=== PATIENT | female | born 1935 | race Caucasian/White ===

== ENCOUNTER 2017-04-01 12:18 | Inpatient (IN) | payer OTHER ==
[~2017-04-01] VITALS: Ht 165.1 cm; Wt 71.7 kg
--- NOTE | 2017-04-01 12:38 | NUR ---
PT HERE FOR HAVING A 3 SEC PERDIOD WHILE EATING LUNCH OF SYNCOPE. NO FALL PT WAS SITTING IN CHAIR. PT DOES NOT REMEMBER INCIDENT. PT ARRIVES ALERT AND ORIENTED WITH NO C/O OF ANY KIND AT THIS TIME. VSS UPON ARRIVAL. BS 122 PER EMS. PT CONNECTED TO GRAPHICS MANAGER AND EKG PERFORMED.
--- NOTE | 2017-04-01 12:39 | NUR ---
DR YANES AT BEDSIDE FOR EVAL
[2017-04-01 13:04] LABS: BASOPHIL % 0.9 % (0-2); PLATELET COUNT 202 x10^3mcL (130-400); RED CELL DISTRIBUTION WIDTH 13.3 % (11.5-14.5)
[2017-04-01 13:08] LABS: UA SPECIFIC GRAVITY >=1.030 (1.005-1.035); microscopic required? YES; urine erythrocyte NEGATIVE (NEGATIVE)
[2017-04-01 13:13] LABS: CALCIUM 9.7 mg/dL (8.5-10.1); CARBON DIOXIDE 31.9 mmol/L (21-32); CHLORIDE SERUM 105 mmol/L (98-107); CREATININE SERUM 0.9 mg/dL (0.6-1.0); GLUCOSE SERUM 131 mg/dL (74-106); POTASSIUM SERUM 4.4 mmol/L (3.5-5.1); SODIUM SERUM 143 mmol/L (136-145)
[2017-04-01 13:17] LABS: ALBUMIN 4.2 g/dL (3.4-5.0); ALKALINE PHOSPHATASE 114 U/L (46-116); ALT/SGPT 58 U/L (14-59); AST/SGOT 42 U/L (15-37); BILIRUBIN TOTAL 0.46 mg/dL (0.20-1.00); TOTAL PROTEIN, SERUM 7.7 g/dL (6.4-8.2)
[2017-04-01] MEDS ORDERED: SYNTHROID0.1 MG PO (13:35)
[2017-04-01] MEDS ORDERED: FENOFIBRATE145 M1 PO (13:35)
[2017-04-01] MEDS ORDERED: DILANTIN100 MG PO (13:35)
--- NOTE | 2017-04-01 13:38 | NUR ---
REPORT GIVEN TO LATIRCIA SHAH RN
[2017-04-01 14:14] VITALS: BP 122/71
--- NOTE | 2017-04-01 14:18 | NUR ---
RECEIVED PT FROM ED VIA ALIX. ORIENTED PT TO ROOM AND SURROUNDINGS. IV NOTED TO LAC PATENT AND INTACT .TELE 16 PLACED ON PT READING SBR. INSTRUCTED PT ON THE USE OF CALL LIGHT FOR ASSISTANCE. ENDORSED PT TO PRIMARY NURSE LATRICIA
--- NOTE | 2017-04-01 14:38 | NUR ---
PT RESTING IN BED, STUDENT AT BEDSIDE, NO RESPRIATORY DISTRESS NOTED, DENIES PAIN.
[2017-04-01 14:56] LABS: MAGNESIUM 2.3 mg/dL (1.8-2.4); PHOSPHOROUS 4.3 mg/dL (2.5-4.9)
[2017-04-01 15:07] LABS: FREE T4 1.02 ng/dL (0.76-1.46); FREE THYROXINE INDEX 2.9 ug/dL (1.4-4.5); T4(THYROXINE) 8.4 ug/dL (4.7-13.3)
[2017-04-01 15:10] LABS: T3 TOTAL 1.05 ng/mL
--- NOTE | 2017-04-01 15:38 | NUR ---
PT OFF UNIT FOR CT SCAN.
--- NOTE | 2017-04-01 15:55 | NUR ---
FLU VACCINE GIVEN.
[2017-04-01 15:57] LABS: AMPHETAMINE QUAL UR NONE DETECTED (NEG <=1000)
[2017-04-01 16:30] VITALS: BP 136/69
--- NOTE | 2017-04-01 17:14 | NUR ---
PT RESTING IN BED, NO RESPIRATORY DISTRESS NOTED, DENIES PAIN, TECH AT BEDSIDE.
--- NOTE | 2017-04-01 18:35 | NUR ---
PT AMBULATED TO BATHROOM INDEPENDENTLY, NO RESPIRATORY DISTRESS NOTED, DENIES PAIN.
--- NOTE | 2017-04-01 19:55 | NUR ---
RECEIVED PATIENT FROM AM RN-JOSE LUIS. PATIENT QUIETLY RESTING IN BED AT THIS TIME. NO S/SX OF DISTRESS NOTED. A/OX4 ABLE TO VERBALIZE NEEDS. TELE 16 NSR, DENIES ANY DIZZINESS OR HEADACHE. SEIZURE PRECAUTIONS IN PLACE. NO SEIZURE ACTIVITY NOTED AT THIS TIME. IVF INFUSING TO LAC AT 160ML/HR NS, NO INFILTRATION NOTED. CALL LIGHT WITHIN REACH.
[2017-04-01 20:29] VITALS: BP 140/71
[2017-04-02] VITALS (7 sets, daily range): BP systolic 118–152; BP diastolic 62–92
--- NOTE | 2017-04-02 01:54 | NUR ---
PATIENT QUIETLY RESTING IN BED. NO S/SX OF DISTRESS NOTED. EASILY AWAKEABLE, DENIES ANY DIZZINESS, OR SYNCOPE EPISODES. SEIZURE PRECAUTIONS REMAIN IN PLACE, WITH NO SEIZURE ACTIVITY NOTED AT THIS TIME. CALL LIGHT WITHIN REACH.
--- NOTE | 2017-04-02 05:41 | NUR ---
PATIENT QUIETLTY RESTING IN BED. EASILY AWAKEABLE. NO SEIZURE ACTIVITY NOTED THROUGHOUT THE NIGHT. NO EPISODES OF DIZZINESS OR SYNCOPE. PATIENT CONTINUES TO DENY ANY PAIN. TELE 16 SR 60. CALL LIGHT WITHIN REACH AND WILL ENDORSE CONTINUITY OF CARE TO AM RN.
[2017-04-02 06:20] LABS: BASOPHIL % 0.4 % (0-2); PLATELET COUNT 189 x10^3mcL (130-400); RED CELL DISTRIBUTION WIDTH 12.9 % (11.5-14.5)
[2017-04-02 06:33] LABS: CALCIUM 8.3 mg/dL (8.5-10.1); CARBON DIOXIDE 28.8 mmol/L (21-32); CHLORIDE SERUM 107 mmol/L (98-107); CREATININE SERUM 0.7 mg/dL (0.6-1.0); GLUCOSE SERUM 97 mg/dL (74-106); POTASSIUM SERUM 3.9 mmol/L (3.5-5.1); SODIUM SERUM 144 mmol/L (136-145)
--- NOTE | 2017-04-02 07:15 | NUR ---
PT WAS ENDORSE TO ME THIS MORNING. AA/O X4, SEIZURE PERC INPLACE. TELE 16 SR. DENIES ANY CHEST PAIN OR DISCOMFORT AT THIS TIME. BREATHING EVEN AND UNLABORED, DIM LUNGS ON RA. IV TO THE LAC AT 160, INTACT AND PATENT. WILL CONTINUE PLAN OF CARE.
--- NOTE | 2017-04-02 13:07 | NUR ---
PT IS AA/O X4 SITTING UP IN BED ENJOYING HER LUNCH. DENIES ANY PAIN OR SYNCOPE AT THIS TIME. CALL LIGHT IN REACH. BED IN LOW POSTION. WILL CONTINUE PLAN OF CARE.
--- NOTE | 2017-04-02 16:40 | NUR ---
PT BP 152/92. DR. MARTINEZ MADE AWARE.
--- NOTE | 2017-04-02 17:44 | NUR ---
RECHECKED PT BP. VS 147/89. HR 61. RESP 16. [address] MARTINEZ MADE AWARE. PT DENIES ANY CHEST PAIN OR PRESSURE. BREATHING EVEN AND UNLABORED. WILL CONTINUE TO MONITOR.
--- NOTE | 2017-04-02 18:23 | NUR ---
PT IS SITTING UP AT SIDE OF BED. AA/O X4. SEIZURE PREC IN PLACE. TELE 16 SR. BREATHING EVEN AND UNLABORED, NO RESP DISTRESS OR SOB NOTED. PT DENEIS ANY SYNCOPE, PAIN OR DISCOMFORT AT THIS TIME.IV TO THE LAC INTACT AND PATENT. WILL ENDORSE PT TO INCOMING RN.
--- NOTE | 2017-04-02 20:00 | NUR ---
PATIENT RECEIVED IN BED AWAKE, ALERT AND ORIENTED X4, SPEECH CLEAR, DENIES DIZZINESS NOR SYNCOPAL EPISODE, DENIES HEADACHE.NO RESP. DISTRESS BREATHING EVEN AND UNLABORED BS CLEAR DIMINISHED BASES, FOUND ON ROOM AIR SAT 98%,DENIES SOB. PATIENT STATED HAVE POOR/BLURRY VISION TO BOTH EYES BUT MORE WORSE TO LEFT EYE, ALSO IS SLIGHT PAMUNKEY ON BOTH EARS NO HEARING AID NOTED. DENIES CHEST PAIN, HR=63BPM, RHYTHM REGULAR, TELE#16 SR. ABDOMEN SOFT NON DISTENDED ACTIVE BS, BM TOAY. VOIDING FREELY,DENIES PAIN UPON URINATION. IV SITE NO SIGN OF INFILTRATION, NOTED SKIN TAGS TO FACE. PATIENT STATED WITH MILD GENERALIZED WEAKNESS, NO SEIZURE ACTIVITY THIS TIME,FALL /SZ PRECAUTIONS MAINTAINED, PADDED RAILS, PATIENT NEEDS ANTICIPATED AND ALSO ADVICED AND INSTRUCTED TO CALL NURSE WHEN NEEDS ARISES. CALL LIGHT IN REACH. PATIENT INFORMED ABOUT POC THIS SHIFT. WILL CONTINUE TO MONITOR.
--- NOTE | 2017-04-02 21:29 | NUR ---
SCHEDULED MEDS ADMINISTERED, TOOK MEDSD WELL. PATIENT INFORMED ABOUT THE ACTION OF MED PRIOR. IN UPRIGHT POSITION. CHANGED IV RATE TO 50 ML/HR NEW ORDER.
--- NOTE | 2017-04-02 22:00 | NUR ---
PATIENT RESTING COMFORTABLY THIS TIME, NO DISTRESS NOTED. SB-SR ON THE MONITOR. NO NOTED SEIZURE ACTIVITY THIS TIME. WILL CONTINUE TO MONITOR.
--- NOTE | 2017-04-03 | NUR ---
ROUND MADE PATIENT SLEEPING QUIETLY AT THIS TIME, NO DISTRESS NOTED, NO NOTED SEIZURE ACTIVITY, SEIZURE PRECAUTIONS MAINTAINED. WILL CONTINUE TO MONITOR. SB ON THE MONITOR.
--- NOTE | 2017-04-03 00:30 | NUR ---
PATIENT CALLED, ASSISTED OOB TO THE BATHROOM, NOTED STEADY SLOW GAIT, VOIDED WITHOUT DIFF, ASSISTED BACK IN BED. OFFERED NO COMLAINTS THIS TIMEL.S AFETY /FALL /SZ PREC MAINTAINED. WILL CONTINUE TO MONITOR.
--- NOTE | 2017-04-03 03:00 | NUR ---
CALLED ASSISTED OOB TO THE BR, VOIDED WITHOUT DIFF. OFFERED NO COMPLAINT OF DIZZINESS. SAFETY/FALL/SZ PRECAUTION OBSERVED AND MAINTAINED. WILL CONTINUE TO MONITOR.
[2017-04-03 05:33] VITALS: BP 143/69
--- NOTE | 2017-04-03 06:30 | NUR ---
PATIENT HAD A RESTFUL AND QUIET NIGHT STATED, ASSISTED OOB TO THE BATHROOM D/T POOR VISION AND WEAKNESS. PATIENT AMBULATED WITH STEADY GAIT, NO SYNCOPAL EPISODE, SEIZURE ACTIVITY DURING THE SHIFT. SB-SR ON THE MONITOR. SAFETY/FALL/SZ PREC OBSERVED AND MAINTAINED. WILL ENDORSE COMTINUITY OF CARE TO INCOMING NURSE.
[2017-04-03 07:11] LABS: CALCIUM 8.5 mg/dL (8.5-10.1); CARBON DIOXIDE 28.7 mmol/L (21-32); CHLORIDE SERUM 109 mmol/L (98-107); CREATININE SERUM 0.6 mg/dL (0.6-1.0); GLUCOSE SERUM 93 mg/dL (74-106); POTASSIUM SERUM 3.7 mmol/L (3.5-5.1); SODIUM SERUM 145 mmol/L (136-145)
--- NOTE | 2017-04-03 07:15 | NUR ---
RECEIVED PATIENT AWAKE/ALERT IN BED NO COMPLAINT, NO DISTRESS NOTED, IV INTACT AND INFUSING WELL. TELE # 16 NOTED, SCD IN PLACE. PATIENT STATE HAVE POOR VISION NEED ASSIST TO BATHROOM, TOOK SCD OFF ASSIST PATIENT TO BATHROOM WALKING STEADY GAIT. INFORM PATIENT TO PULL CORD IN BATHROOM FOR ASSISTANCE.
[2017-04-03 07:32] LABS: BASOPHIL % 0.6 % (0-2); PLATELET COUNT 178 x10^3mcL (130-400); RED CELL DISTRIBUTION WIDTH 13.2 % (11.5-14.5)
--- NOTE | 2017-04-03 07:35 | NUR ---
ASSIST PATIENT BACK TO BE PER PATIENT HAS BM X 1 SOFT; CALL LIGHT WITHIN REACH. SCD'S IN PLACE. IV INTACT NOTED.
[2017-04-03 09:19] VITALS: BP 139/60
--- NOTE | 2017-04-03 09:31 | NUR ---
PATIENT RESTING IN BED NO COMPLAINT, ALL DUE MEDS GIVEN. INFORM PATIENT HER BROTHER [place] CALL AND UPDATE PATIENT'S CONDITION. NEED ANTICIPATED.
--- NOTE | 2017-04-03 10:27 | NUR ---
ASSIST PATIENT TO BATHROOM AND BACK TO BED VOIDED.
--- NOTE | 2017-04-03 12:00 | NUR ---
PATIENT RESTING IN BED NO COMPLAINT, UPDATE PATIENT NO ACTUAL DISCHARGE ORDER YET. INFORM PATIENT LEFT MESSAGE FOR L[facility]SE[facility] AT [phone]. NEEDS ANTICIPATED. CALL LIGHT WITHIN REACH.
[2017-04-03 14:37] VITALS: BP 133/64
--- NOTE | 2017-04-03 14:43 | NUR ---
PATIENT SLEEPING AT THIS TIME. CALL LIGHT WITHIN REACH.
--- NOTE | 2017-04-03 15:34 | NUR ---
PATIENT RESTING IN BED AWAKE; NO COMPLAINT. INFORM PATIENT DOCTOR PLACE AN ORDER FOR DISCHARGE. INFORM PATIENT DOCTOR NEED AN HOUR FOR DISCHARGE PAPERS. TELE BOX REMOVED AND RETURN TO MONITORING ROOM.
[2017-04-03 15:36] VITALS: BP 133/64
--- NOTE | 2017-04-03 16:05 | NUR ---
CALLED TO PT FRIEND MAY TO [employer] PT . WILL COME TO [facility] [facility] PT.
--- NOTE | 2017-04-03 16:08 | NUR ---
PATIENT IN BED NO COMPLAINT, DISCHARGE INSTRUCTIONS AND HOME MEDICATIONS EXPLAINED. INSTRUCT PATIENT TO F/U WITH PCP IN 3-5 DAYS. PATIENT VERBALIZE WILL CALL PCP ON TUESDAY. PATIENT GETTING DRESS AT THIS TIME. CALL HAZEL RUEDA ( FRIEND) ON THE WAY HERE FOR PATIENT. IV DC'D AND INTACT; BA APPLIED TO SITE NO BLEEDING NOTED.
--- NOTE | 2017-04-03 16:24 | NUR ---
ALIGNER ASSISTING WHEEL PATIENT OUT AT THIS TIME. ALL BELONGINGS WITH PATIENT.
== END 2017-04-03 16:25 | DRG 73 ==
LOC: ED 12:18 → DU 13:18
PROVIDERS: Emergency Medicine; Student in an Organized Health Care Education/Training Program; ADMIT Family Medicine Sports Medicine
DX: G90.9 Disorder of the autonomic nervous system, unspecified (principal); N17.0 Acute kidney failure with tubular necrosis; E78.5 Hyperlipidemia, unspecified; E86.0 Dehydration; G40.909 Epilepsy, unspecified, not intractable, without status epilepticus; E02 Subclinical iodine-deficiency hypothyroidism; D75.1 Secondary polycythemia
CPT/HCPCS: 83880; 84439; 90658; J7030; Q0092